=== PATIENT | female | born 1940 | race Caucasian/White ===

== ENCOUNTER 2016-10-13 09:46 | Inpatient (IN) | payer BC, OTHER ==
[2016-10-03 13:46] VITALS: BMI 32.2
--- NOTE | 2016-10-09 10:45 | HP ---
[facility] - Chief Complaint Chief Complaint: right knee pain - Past Medical History Allergies/Adverse Reactions: Allergies Allergy/AdvReac Type Severity Reaction Status Date / Time No Known Drug Allergies Allergy Verified 10/03/16 13:29 - Current Medications Current Medications: Home Medications Medication Instructions Recorded Aspirin Coated [Ecotrin -] 81 mg PO DAILY 09/15/13 Omeprazole [Prilosec] 20 mg PO DAILY 09/15/13 Amlodipine Besylate [Norvasc -] 5 mg PO DAILY 11/01/15 Cyclosporine [Restasis] 1 each OU BID 11/01/15 Nebivolol HCl [Bystolic] 5 mg PO DAILY 11/01/15 Albuterol Sulfate Inhaler - 1 - 2 inh PO QID PRN 10/03/16 [Ventolin Hfa Inhaler -] Ferrous Sulfate [Feosol] 325 mg PO DAILY 10/03/16 Folic Acid 0.4 mg PO DAILY 10/03/16 Hydrochlorothiazide [Hctz -] 50 mg PO DAILY PRN 10/03/16 Vitamin B Complex [B Complex] 1 each PO DAILY 10/03/16 Satellite Physical Exam - Physical Examination General Appearance: Well Nourished, Well Developed, Alert & Oriented x3 ENT: Clear Lung: Normal air movement Heart: Regular rate & rhythm Extremities: Other (right knee- + swelling, + ttp, decr rom, nvi xrays show severe tricompartmental djd) Neurological: Intact, Alert, Oriented Satellite Impression/Plan - Impression/Plan Impression: right knee djd Operative Procedure: right marito tkr Date to be Performed: 10/13/16
[2016-10-13] MEDS ORDERED: CELECOXIB 200 MG CAPSULE PO ONE (10:02)
[2016-10-13] MEDS ORDERED: GABAPENTIN 300 MG CAPSULE (FP) PO ONE (10:02)
[2016-10-13] MEDS ORDERED: oxyCODONE HCL 10 MG SUSTAINED ACTING TABLET PO ONE (10:02)
[2016-10-13] MEDS ORDERED: CEFAZOLIN 1 GM/D5W 50 ML IVPB ONE (10:02)
[2016-10-13] MEDS ORDERED: TRANEXAMIC ACID 1000 MG/10 ML VIAL IVPUSH ONE (10:02)
[2016-10-13] MEDS ORDERED: MIDAZOLAM HCL 2 MG/2 ML SINGLE DOSE VIAL ONE (10:56)
[2016-10-13] MEDS ORDERED: BUPIVACAINE HCL/PF (5 MG/ML) 30 ML VIAL IJ ONE (10:56)
[2016-10-13] MEDS ORDERED: DEXAMETHASONE SOD PHOSPHATE/PF 10 MG/ML SDV ONE (10:56)
[2016-10-13] MEDS ORDERED: BUPIVACAINE HCL/PF 0.5% (5MG/ML) 10 ML VIAL ONE (11:44)
[2016-10-13] MEDS ORDERED: ACETAMINOPHEN 325 MG TABLET (FP) ONE (13:41)
[2016-10-13] MEDS ORDERED: MAG HYDROX/AL HYDROX/SIMETH 30 ML UNIT-DOSE CUP PO PRN (13:46)
[2016-10-13] MEDS ORDERED: ONDANSETRON 4 MG/2 ML VIAL IVPB PRN (13:46)
[2016-10-13] MEDS ORDERED: MAGNESIUM HYDROX 2400MG/30ML ORAL SUSPENSION 30 ML CUP PO PRN (13:46)
[2016-10-13] MEDS ORDERED: HYDROCHLOROTHIAZIDE 50 MG TABLET PO PRN (13:46)
[2016-10-13] MEDS ORDERED: ALBUTEROL SO4 6.7 GM HFA INHALER IH PRN (13:46)
--- NOTE | 2016-10-13 13:49 | OP ---
Operative Note - Note: Operative Date: 10/13/16 (eduarda) Pre-Operative Diagnosis: right knee djd Operation: right marito tkr Post-Operative Diagnosis: Same as Pre-op Surgeon: Chalino Villarreal Reconciliation Clerk: Fredi Perez Anesthesiologist/VALUATION MANAGER: Boubacar Sharma Anesthesia: Spinal, Local Specimens Removed: bone fragments Estimated Blood Loss (mls): 50 (tourniquet) Operative Report Dictated: Yes
[2016-10-13] MEDS ORDERED: LACTATED RINGERS SOLUTION 1,000 ML IV SCH ×2 (14:00→14:15)
[2016-10-13] MEDS ORDERED: PROMETHAZINE HCL 25 MG/1 ML VIAL IVPUSH PRN (14:10)
[2016-10-13] MEDS ORDERED: ONDANSETRON 4 MG/2 ML VIAL IVPUSH PRN (14:10)
[2016-10-13] MEDS ORDERED: ACETAMINOPHEN 325 MG TABLET (FP) PO ONE (14:30)
[2016-10-13] MEDS: ACETAMINOPHEN 325 MG TABLET (FP) PO SCH ×2 (18:27→21:04)
[2016-10-13] MEDS: oxyCODONE HCL 5 MG TABLET PO PRN (18:31)
[2016-10-13] MEDS: CEFAZOLIN 1 GM/D5W 50 ML IVPB SCH (21:04)
[2016-10-13] MEDS ORDERED: PATIENT'S OWN MEDICATION (NON-FORMULARY) (Cyclosporine [Restasis] 1 EACH) OU SCH (22:00)
[2016-10-13] MEDS: SENNOSIDES/DOCUSATE COMBO (SENNA PLUS) TABLET (UD) PO SCH (22:14)
[2016-10-13] MEDS: oxyCODONE HCL 10 MG SUSTAINED ACTING TABLET PO SCH (22:15)
[2016-10-14] MEDS: ACETAMINOPHEN 325 MG TABLET (FP) PO SCH ×4 (02:19→20:22)
[2016-10-14] MEDS: oxyCODONE HCL 5 MG TABLET PO PRN ×3 (02:23→19:27)
[2016-10-14] MEDS: CEFAZOLIN 1 GM/D5W 50 ML IVPB SCH (04:13)
[2016-10-14 07:42] LABS: MCH 27.5 pg (25.7-33.7); MEAN CELL VOLUME 83.1 fl (80-96); MEAN PLT VOLUME 9.9 fl (7.5-11.1); PLATELET COUNT 170 K/MM3 (134-434); RDW 15.2 % (11.6-15.6); WHITE BLOOD COUNT 11.6 K/mm3 (4.0-10.8)
[2016-10-14] MEDS: ASPIRIN 325 MG TABLET PO SCH (08:26)
--- NOTE | 2016-10-14 09:01 | SPEC ---
DATE OF OPERATION: 10/13/2016 PREOPERATIVE DIAGNOSIS: Degenerative joint disease, right knee. POSTOPERATIVE DIAGNOSIS: Degenerative joint disease, right knee. PROCEDURE: Right total knee replacement with robotic-assisted navigation (MAKOplasty). SURGEON: Chalino Villarreal MD VIDEO NETWORK ENGINEER: RACHEL Christian ANESTHESIA: Spinal and regional. CLOSURE: A Triathlon cemented knee system with a 4 femur, a 4 tibia, an 11 polyethylene, a 32 patella. No. 1 Vicryl, fascia; 0 and 2-0, subcutaneous; 3-0 Monocryl, subcuticular with skin glue for skin; 4-0 undyed Vicryl for pin sites. ESTIMATED BLOOD LOSS: Negligible. TOURNIQUET TIME: Approximately 75 minutes. COMPLICATIONS: None. CONDITION: To recovery room in stable condition. DESCRIPTION OF PROCEDURE: Patient was taken to the operating room. Regional and spinal anesthesia were administered by the anesthesiologist. IV antibiotics and TXA were administered prophylactically prior to the case. A well-padded pneumatic tourniquet was placed on the right proximal thigh. The right lower extremity was prepped and draped in the usual sterile fashion. An approximately 12-cm midline incision centered over the patella was incised. Hemostasis was achieved with Bovie cautery. Sharp dissection was carried down to the level of the extensor mechanism ____ the procedure. A medial parapatellar arthrotomy was then performed. The patella was inverted and the knee was flexed up to 90 degrees. Subperiosteal dissection was performed on the anteromedial proximal tibia until the knee was able to be brought forward. This was facilitated by taking the ACL, the PCL, and the medial and lateral menisci. A checkpoint was malleted into the medial femoral condyle and into the anteromedial proximal tibia. Through 2 small stab incisions in the mid femur and 2 in the mid tibia, 2 bicortical pins were drilled, achieving excellent height. Two of these pins were attached to the navigation arrays. The knee was then registered with the navigation device by rotating the hip to ascertain the center of rotation of the hip with points on both the medial and lateral malleoli and multiple points on both the femur and on the tibia. Excellent registration was confirmed by "popping the bubbles." At this time, the osteophytes on the edges of the proximal tibia both medially and laterally, as well as on the medial lateral femoral condyles underneath the collateral ligaments were debrided. The knee was stressed in extension and in flexion to confirm good gaps. The virtual positions of the components were then optimized in order to have a balanced knee, both in extension and in 90 degrees of flexion. The sizes of the components were also optimized to get good coverage over both the tibia and the femur and to produce equal gaps in extension and flexion with the appropriate amount of external rotation of the femur, the appropriate amount of flexion of the femoral component and the appropriate slope on the tibial component. At this time, the robot was brought into the field and registered. The robot was used to cut the proximal tibia and to make all the cuts on the distal femur. The bone was then removed. A spacer block in extension and flexion was used to confirm equal balancing of the component in both extension and 90 degrees of flexion. The box for the posterior cruciate sacrificing component was then performed and a trial component on the femur and tibia was applied. The femoral component was clipped into place with the appropriate external rotation. This was confirmed by the navigation device, ensuring the appropriate position of the tibial component on the proximal tibia. The patella was calipered for thickness and osteotomized at the appropriate level. A lollipop was used to drill the 3 lugholes in the patella and then a trial component was applied. The knee was taken through a range of motion and found to have excellent tracking of the patella from full extension to full flexion, with good stability, varus/valgus throughout range of motion. The trial components were then removed. Before removing the tibial tray, the keyhole was made. The knee was then thoroughly irrigated with antibiotic irrigation. The real components were then cemented in, using modern generation cement techniques with antibiotic cement and pressurization. After the cement was hardened, the knee was thoroughly inspected to remove all excess cement. The real polyethylene component was then clipped into place. Again, range of motion, stability and tracking were found to be excellent throughout. The knee was then pulse antibiotic irrigated and dried. Vancomycin powder was placed into the knee. The checkpoints were removed. The medial parapatellar arthrotomy was then closed using No. 1 Vicryl interrupted suture. The knee was again taken through range of motion and found to have no undue tension on the repair and good tracking throughout. The subcutaneous was closed with 0 and 2-0 Vicryl and 3-0 Monocryl subcuticular for skin with skin glue. The pins were removed in the femur and the tibia and pulse antibiotic irrigated and closed with 4-0 undyed Vicryl. Sterile Aquacel dressing followed by a Jay dressing was applied. The tourniquet was then deflated. One more dose of TXA was administered at the end of the case. The patient was awakened from anesthesia and transferred to the recovery room in stable condition. X-rays revealed good position of the components. There were no complications. Estimated blood loss was negligible. Total tourniquet time was approximately 75 minutes. Coy [id number]
[2016-10-14] MEDS: NEBIVOLOL 5 MG TABLET (FP) PO SCH (09:39)
[2016-10-14] MEDS: SENNOSIDES/DOCUSATE COMBO (SENNA PLUS) TABLET (UD) PO SCH ×2 (09:40→21:50)
[2016-10-14] MEDS: oxyCODONE HCL 10 MG SUSTAINED ACTING TABLET PO SCH ×2 (09:40→21:50)
[2016-10-14] MEDS: amLODIPine BESYLATE 5 MG TABLET (FP) PO SCH (09:40)
[2016-10-14] MEDS: FERROUS SO4 325 MG TABLET (FP) PO SCH (09:41)
[2016-10-14] MEDS: PANTOPRAZOLE 40 MG TABLET (FP) PO SCH (09:41)
[2016-10-14] MEDS: MULTIVITAMINS (DAILY MVI) TABLET (FP) PO SCH (09:42)
[2016-10-14] MEDS ORDERED: NEBIVOLOL 2.5 MG TABLET (FP) PO SCH (10:00)
--- NOTE | 2016-10-14 10:46 | PN ---
Progress Note (short form) - Note Progress Note: Ortho Pt seen and examined s/p right marito tkr pod #1 Selected Entries 10/14/16 05:00 Temperature 98.0 F Pulse Rate 66 Respiratory 18 Rate Blood Pressure 111/51 Laboratory Tests 10/14/16 07:35 WBC 11.6 H Hgb 11.1 Hct 33.6 Plt Count 170 dressing with slight drainage not to borders, rom 0-50 calf soft, nt, nvi a/p PT dvt ppx pain control d/c home tomorrow if stable
[2016-10-15] MEDS: ACETAMINOPHEN 325 MG TABLET (FP) PO SCH ×2 (03:12→09:50)
[2016-10-15] MEDS: oxyCODONE HCL 5 MG TABLET PO PRN ×2 (03:13→07:05)
[2016-10-15 07:55] LABS: MEAN CELL VOLUME 83.5 fl (80-96)
[2016-10-15 08:02] LABS: MCH 27.5 pg (25.7-33.7); MEAN PLT VOLUME 11.6 fl (7.5-11.1); PLATELET COUNT 164 K/MM3 (134-434); RDW 15.4 % (11.6-15.6); WHITE BLOOD COUNT 9.2 K/mm3 (4.0-10.8)
--- NOTE | 2016-10-15 08:23 | PN ---
Progress Note (short form) - Note Progress Note: Ortho Pt seen and examined s/p right marito tkr pod #2 Selected Entries 10/15/16 06:00 Temperature 98.5 F Pulse Rate 71 Respiratory 20 Rate Blood Pressure 117/49 Laboratory Tests 10/15/16 06:00 WBC 9.2 Hgb 11.1 Hct 33.5 Plt Count 164 dressing with slight drainage not to borders, rom 0-50 calf soft, nt, nvi a/p PT dvt ppx pain control d/c home today f/u in 1 week
--- NOTE | 2016-10-15 08:24 | DS ---
Physical Examination Vital Signs: Vital Signs Temperature 98.5 F 10/15/16 06:00 Pulse Rate 71 10/15/16 06:00 Respiratory Rate 20 10/15/16 06:00 Blood Pressure 117/49 10/15/16 06:00 O2 Sat by Pulse Oximetry (%) 95 10/15/16 07:14 Labs: CBC, BMP 10/15/16 06:00 Discharge Summary Reason For Visit: OSTEOARTHRITIS Procedures: Principal: s/p right marito tkr Hospital Course: admitted for elective right marito tkr, uneventful post-op, stable for d/c Condition: Good - Instructions Diet, Activity, Other Instructions: Post-op Instructions-Total Knee Replacement Call the office for a follow-up appointment in 1 week - [phone] Aspirin 325mg daily for 6 weeks. Pain medication was sent into your pharmacy. Apply Graduated Compression Stockings (TEDs) to both lower extremities- remove daily for hygiene ONLY Apply Sequential Compression Device (SCDs) to both Lower extremities remove for PT and hygiene ONLY Apply cold packs to affected area for 15 minutes every 2 hours. Physical Therapist will come to your home for the first 5 days. You will be set up with outpatient PT at your first post-operative visit. Patient may ambulate as tolerated-encourage self care (at least every 2-3 hours while awake) with walker or cane Maintain Aquacel (waterproof) dressing to operative wound (will be removed by surgeon at first office visit) Shower with Aquacel dressing in place-if Aquacel integrity compromised, remove and apply dry sterile dressing and notify Orthopedist. DO NOT SHOWER unless Orthopedists approves without Aquacel dressing CONTACT THE OFFICE FOR ANY CHANGE IN YOUR CONDITION (for example-fever greater than 102 degrees,excessive bleeding from operative site, purulent drainage, severe swelling or pain) GO TO THE EMERGENCY ROOM IF THERE IS A MEDICAL EMERGENCY Knee Precautions: * Keep a rolled towel under affected heel while in bed or chair (to keep knee in extension) * Keep affected leg elevated except during mealtimes * DO NOT PLACE PILLOW UNDER AFFECTED KNEE * If you have any questions, please do not hesitate to call the office - . Referrals: Chalino Villarreal MD [Staff Physician] - Disposition: VNS/HOME HEALTH CARE - Home Medications Comprehensive Discharge Medication List: Ambulatory Orders Aspirin Coated [Ecotrin -] 81 mg PO DAILY 09/15/13 Omeprazole [Prilosec] 20 mg PO DAILY 09/15/13 Amlodipine Besylate [Norvasc -] 5 mg PO DAILY 11/01/15 Cyclosporine [Restasis] 1 each OU BID 11/01/15 Nebivolol HCl [Bystolic] 5 mg PO DAILY 11/01/15 Albuterol Sulfate Inhaler - [Ventolin HFA Inhaler -] 1 - 2 inh PO QID PRN Ferrous Sulfate [Feosol] 325 mg PO DAILY 10/03/16 Folic Acid 0.4 mg PO DAILY 10/03/16 Hydrochlorothiazide [Hctz -] 50 mg PO DAILY PRN 10/03/16 Vitamin B Complex [B Complex] 1 each PO DAILY 10/03/16 Aspirin [ASA -] 325 mg PO DAILY@0800 tablet 10/13/16 Oxycodone HCl/Acetaminophen [Percocet 5-325 mg Tablet] 1 - 2 tab PO Q6H #50 tab MDD 8 10/13/16
[2016-10-15] MEDS: ASPIRIN 325 MG TABLET PO SCH (09:49)
[2016-10-15] MEDS: MULTIVITAMINS (DAILY MVI) TABLET (FP) PO SCH (09:50)
[2016-10-15] MEDS: PANTOPRAZOLE 40 MG TABLET (FP) PO SCH (09:50)
[2016-10-15] MEDS: NEBIVOLOL 5 MG TABLET (FP) PO SCH (09:50)
[2016-10-15] MEDS: oxyCODONE HCL 10 MG SUSTAINED ACTING TABLET PO SCH (09:50)
[2016-10-15] MEDS: FERROUS SO4 325 MG TABLET (FP) PO SCH (09:50)
[2016-10-15] MEDS: amLODIPine BESYLATE 5 MG TABLET (FP) PO SCH (09:50)
[2016-10-15] MEDS: SENNOSIDES/DOCUSATE COMBO (SENNA PLUS) TABLET (UD) PO SCH (09:50)
[2016-10-15 10:10] VITALS: BP 139/71; PULSE 83; TEMP 98.3
--- NOTE | 2016-10-18 16:09 | PATH ---
Surgical Pathology Report Patient Name: ANTONIO MARY Med. Rec. #: [id number] /Age/Gender: 1940 (Age: 75) / F Account: [id number] Location: [facility], 1928–1983 MED-SURG Taken: 10/13/2016 Received: 10/13/2016 Reported: 10/18/2016 Physicians: Chalino Villarreal M.D. Specimen(s) Received RIGHT KNEE BONES Clinical History Osteoarthritis right knee Final Diagnosis KNEE BONES, RIGHT, TOTAL KNEE REPLACEMENT: DEGENERATIVE JOINT DISEASE. Electronically Signed Cristy Carlisle M.D. Gross Description Received in formalin labeled "right knee bones," is a 12.0 x 10.0 x 1.5 cm aggregate of multiple irregular portions of bone and soft tissue. The tibial plateau measures 7.0 x 5.0 x 1.4 cm. There are no areas of eburnation identified. The articular surfaces are meza-yellow and focally granular. The underlying trabecular bone is yellow and hard. Fishing Vessel Deckhand sections are submitted in one cassette, following decalcification. 10/16/201610/16/2016
== END 2016-10-15 11:35 | disposition home health service (06) | DRG 470 ==
LOC: FM/S 09:46
PROVIDERS: ADMIT Orthopaedic Surgery; ATTEND Orthopaedic Surgery
PROC: 8E0Y0CZ Robotic Assisted Procedure of Lower Extremity, Open Approach (ICD-10-PCS; 2016-10-13)
PROC: 0SRC0J9 Replacement of Right Knee Joint with Synthetic Substitute, Cemented, Open Approach (ICD-10-PCS; principal; 2016-10-13 12:00)
DX: M17.11 Unilateral primary osteoarthritis, right knee (principal); I10 Essential (primary) hypertension; J45.909 Unspecified asthma, uncomplicated; E78.5 Hyperlipidemia, unspecified; I25.10 Atherosclerotic heart disease of native coronary artery without angina pectoris
CPT/HCPCS: 36415; 73560-TC-RT; 85027; 88304-TC; 88311-TC; 94010; 94760; 97116-GP; 97161-GP

== ENCOUNTER → 2017-09-05 | Day surgery (SDC) | payer BC, OTHER ==
[2017-09-05 08:50] LABS: BASO % 0.4 % (0-2.0); EOS % 5.4 % (0-4.5); HEMATOCRIT 36.7 % (32.4-45.2); HEMOGLOBIN 11.7 GM/dL (10.7-15.3); LYMPH % 32.8 % (8-40); MCH 26.1 pg (25.7-33.7); MEAN CELL VOLUME 81.6 fl (80-96); MEAN PLT VOLUME 9.2 fl (7.5-11.1); NEUT % 50.4 % (42.8-82.8); PLATELET COUNT 208 K/MM3 (134-434); RDW 14.9 % (11.6-15.6); WHITE BLOOD COUNT 5.4 K/mm3 (4.0-10.0)
[2017-09-05 09:06] LABS: INR 0.96 (0.82-1.09); PROTHROMBIN TIME (PATIENT) 10.8 SEC (9.7-13.0)
--- NOTE | 2017-09-07 08:39 | PATH ---
Cytology Non-Gynecological Report Patient Name: ANTONIO MARY [facility]. Rec. #: [id number] /Age/Gender: 1940 (Age: 76) / F Account: [id number] Location: RADIOLOGY Taken: 09/05/2017 Received: 09/05/2017 Reported: 09/07/2017 Physicians: Coy Cisneros M.D. Specimen(s) Received SUBMANDIBULAR GLAND TISSUE LEFT SIDE Clinical History Submandibular lump Final Diagnosis SUBMANDIBULAR GLAND TISSUE, LEFT, FINE NEEDLE ASPIRATION: UNSATISFACTORY FOR EVALUATION. Note: Non-diagnostic material with predominantly blood and rare (one small cluster) epithelial cells only. Electronically Signed Edinson Velazco M.D. Addendum Reported: 09/07/2017 Addendum Diagnosis LYMPHOPROLIFERATIVE FLOW PANEL performed and interpreted at [facility], [place], [place] ([id number]) shows the following: INTERPRETATION: No evidence of B or T-cell Non-Hodgkin Lymphoma. See [facility] report ([id number]) for additional details. Edinson Velazco M.D. Gross Description Approximately 50cc of yellow fluid. Four Diff-Quik stained and four Pap stained slides were prepared.
== END | disposition home or self-care (01) ==
LOC: JRADIR 08:32
PROVIDERS: ATTEND Otolaryngology Facial Plastic Surgery
PROC: 0C9 Mouth and Throat, Drainage (ICD-10-PCS; principal; 2017-09-05)
DX: D37.032 Neoplasm of uncertain behavior of the submandibular salivary glands (principal)
CPT/HCPCS: 36415; 76942; 85025; 85610

== ENCOUNTER 2020-06-24 11:30 | Emergency (ER) | payer OTHER ==
[2020-06-24 11:50] VITALS: BMI 31.2
[2020-06-24 13:20] LABS: HEMATOCRIT 26.2 % (32.4-45.2); HEMOGLOBIN 7.9 GM/dL (10.7-15.3); MCH 20.3 pg (25.7-33.7); MEAN CELL VOLUME 67.8 fl (80-96); MEAN PLT VOLUME 10.2 fl (7.5-11.1); PLATELET COUNT 215 K/MM3 (134-434); RBC 3.87 M/mm3 (3.60-5.2); RDW 20.5 % (11.6-15.6); WHITE BLOOD COUNT 4.1 K/mm3 (4.0-10.0)
[2020-06-24 13:31] LABS: INR 0.95 (0.83-1.09); PROTHROMBIN TIME (PATIENT) 11.5 SEC (9.7-13.0)
[2020-06-24 13:34] LABS: ACTIVATED PTT 25.2 SECONDS (25.2-36.5)
[2020-06-24 13:48] LABS: ALBUMIN 3.6 g/dl (3.4-5.0); CALCIUM 8.8 mg/dL (8.5-10.1)
[2020-06-24 13:51] LABS: BLOOD UREA NITROGEN 11.6 mg/dL (7-18); CREATININE 0.9 mg/dL (0.55-1.3)
[2020-06-24 13:53] LABS: BILIRUBIN,TOTAL 0.2 mg/dL (0.2-1); TOT PROT 6.9 g/dl (6.4-8.2)
[2020-06-24 15:15] VITALS: BP 115/63; PULSE 58; TEMP 97.6
[2020-06-24 15:35] LABS: ANISOCYTOSIS 1+; MACROCYTOSIS 1+; OVALOCYTE 1+; PLATELET ESTIMATE NORMAL
== END 2020-06-24 15:16 | disposition home or self-care (01) ==
LOC: JER 11:30
DX: D64.9 Anemia, unspecified (principal)
CPT/HCPCS: 36415; 80053; 82272; 85025; 85610; 85730; 99284-25

== ENCOUNTER 2021-11-23 10:54 | Day surgery (SDC) | payer OTHER ==
[2021-11-22 13:57] VITALS: BMI 31.1
[2021-11-23 13:05] VITALS: RESP 18
[2021-11-23 13:24] VITALS: BP 116/60; PULSE 69; TEMP 98
== END 2021-11-23 13:20 | disposition home or self-care (01) ==
LOC: FASU-ENDO 10:54
PROVIDERS: ATTEND Internal Medicine Gastroenterology
PROC: 0DB68ZX Excision of Stomach, Via Natural or Artificial Opening Endoscopic, Diagnostic (ICD-10-PCS; 2021-11-23)
PROC: 0DB48ZX Excision of Esophagogastric Junction, Via Natural or Artificial Opening Endoscopic, Diagnostic (ICD-10-PCS; 2021-11-23)
PROC: 0DB98ZX Excision of Duodenum, Via Natural or Artificial Opening Endoscopic, Diagnostic (ICD-10-PCS; principal; 2021-11-23 12:28)
DX: D64.9 Anemia, unspecified (principal); K29.50 Unspecified chronic gastritis without bleeding; K20.90 Esophagitis, unspecified without bleeding
CPT/HCPCS: 88305-TC; 88342-TC

== ENCOUNTER 2022-06-11 12:21 | Emergency (ER) | payer OTHER ==
[2022-06-11 12:32] VITALS: BP 172/87; PULSE 77; RESP 18; TEMP 98.4; BMI 30.2
[2022-06-11] MEDS ORDERED: LIDOCAINE HCL 1%, 10 MG/ML (50 mL VIAL) SQ ONE ×2 (13:17→16:09)
[2022-06-11] MEDS ORDERED: LIDOCAINE HCL 1%, 10 MG/ML (10ML VIAL) MDV ONE ×2 (13:19→16:51)
[2022-06-11] MEDS ORDERED: DIPHTH,PERTUSS(ACELL),TET 0.5 ML DISP.SYRIN IM ONE ×2 (14:24→14:29)
[2022-06-11] MEDS ORDERED: BACITRACIN ZINC 15 GM TUBE TOPICAL OINTMENT ONE (15:10)
[2022-06-11] MEDS ORDERED: morphine CARPU-JECT 2 MG/1 ML DISP.SYRIN IM ONE (17:11)
== END 2022-06-11 18:43 | disposition home or self-care (01) ==
LOC: JERFT 12:21 → JER 12:21 → JERFT 18:43
PROC: 3E023GC Introduction of Other Therapeutic Substance into Muscle, Percutaneous Approach (ICD-10-PCS; principal; 2022-06-11)
PROC: 3E0234Z Introduction of Serum, Toxoid and Vaccine into Muscle, Percutaneous Approach (ICD-10-PCS; 2022-06-11)
PROC: 3E013BZ Introduction of Anesthetic Agent into Subcutaneous Tissue, Percutaneous Approach (ICD-10-PCS; 2022-06-11)
DX: S52.501A Unspecified fracture of the lower end of right radius, initial encounter for closed fracture (principal); S52.611A Displaced fracture of right ulna styloid process, initial encounter for closed fracture; M25.561 Pain in right knee; W10.1XXA Fall (on)(from) sidewalk curb, initial encounter; Y93.01 Activity, walking, marching and hiking
CPT/HCPCS: 72170-TC-FY; 73110-TC-LT-FY; 73110-TC-RT-FY; 73130-TC-LT-FY; 73130-TC-RT-FY; 73562-TC-LT-FY; 90471; 90715; 96372; 99284-25

== ENCOUNTER 2022-06-28 09:18 | Day surgery (SDC) | payer OTHER ==
[2022-06-26 14:45] VITALS: BMI 32.9
[2022-06-28] MEDS ORDERED: PROPOFOL 20 ML ONE (09:28)
[2022-06-28] MEDS ORDERED: MIDAZOLAM HCL 2 MG/2 ML SINGLE DOSE VIAL ONE ×2 (09:28→11:34)
[2022-06-28] MEDS ORDERED: ONDANSETRON 4 MG/2 ML VIAL IVPUSH PRN (10:20)
[2022-06-28] MEDS ORDERED: oxyCODONE HCL 5 MG TABLET PO PRN (10:20)
[2022-06-28] MEDS ORDERED: LIDOCAINE 1% P/F 10 MG/ML VIAL ONE ×2 (10:28→10:29)
[2022-06-28] MEDS ORDERED: ROPIVACAINE HCL 0.5% 30ML VIAL ONE (10:29)
[2022-06-28] MEDS ORDERED: LACTATED RINGERS SOLUTION 1,000 ML IV SCH (10:30)
[2022-06-28] MEDS ORDERED: ceFAZolin SODIUM 1 GM VIAL ONE (11:38)
[2022-06-28] MEDS ORDERED: KETOROLAC TROMETHAMINE 30 MG/1 ML VIAL ONE (12:29)
[2022-06-28] MEDS ORDERED: ACETAMINOPHEN 1000 MG/100 ML BAG IVPB ONE (12:37)
[2022-06-28] MEDS ORDERED: FENTANYL CITRATE/PF 50 MCG/ML VIAL ONE (12:38)
[2022-06-28] MEDS ORDERED: oxyCODONE HCL 5 MG TABLET ONE (13:40)
[2022-06-28 14:54] VITALS: BP 121/64; PULSE 67; RESP 19; TEMP 98.2
== END 2022-06-28 14:25 | disposition home or self-care (01) ==
LOC: FASU 09:18
PROVIDERS: ATTEND Orthopaedic Surgery Hand Surgery
PROC: 0LN50ZZ Release Right Lower Arm and Wrist Tendon, Open Approach (ICD-10-PCS; 2022-06-28)
PROC: 0PSH04Z Reposition Right Radius with Internal Fixation Device, Open Approach (ICD-10-PCS; principal; 2022-06-28 11:47)
DX: S52.571A Other intraarticular fracture of lower end of right radius, initial encounter for closed fracture (principal); X58.XXXA Exposure to other specified factors, initial encounter; Y93.9 Activity, unspecified; Y92.9 Unspecified place or not applicable
CPT/HCPCS: 25290; 25609; C1713; 73110-TC-RT-FY; 94760